=== PATIENT | male | born 1980 ===

== ENCOUNTER 2019-08-10 03:53 | Emergency (ER) | payer SELFPAY ==
[~2019-08-10] VITALS: Ht 175.3 cm; Wt 65.9 kg
[2019-08-10 03:58] VITALS: TEMP 98.9
[2019-08-10 04:29] VITALS: BP 131/88; PULSE 104
[2019-08-10 05:36] LABS: HEMATOCRIT 44.9 % (42.0-52.0); HEMOGLOBIN 15.4 g/dl (13.5-18.0); MEAN CELL VOLUME 82 fl (80.0-100.0); MEAN CORPUSCULAR HEMOGLOBIN 28 pg (27.0-31.0); MEAN CORPUSCULAR HGB CONC 34 g/dl (33.0-37.0); MEAN PLATELET VOLUME 9.3 fl (7.4-10.4); PLATELET COUNT 151 K/mm3 (130-400); RED BLOOD COUNT 5.47 M/mm3 (4.20-5.60); REDCELL DISTRIBUTION WIDTH-CV 12.1 % (11.5-14.5)
[2019-08-10 05:45] LABS: ALANINE AMINOTRANSFERASE 25 U/L (4-49); ALBUMIN 4.1 gm/dL (3.5-5.0); ALKALINE PHOSPHATASE 49 U/L (50-136); ANION GAP 9 mmol/L (7-16); AST,SGOT 27 U/L (15-37); BILIRUBIN,TOTAL 1.5 mg/dL (0.0-1.0); BLOOD UREA NITROGEN 19 mg/dL (9-20); CALCIUM 8.9 mg/dL (8.4-10.2); CARBON DIOXIDE 23 mmol/L (22-30); CHLORIDE 106 mmol/L (98-107); CREATININE, serum 0.84 (0.66-1.25); GLUCOSE 116 mg/dL (74-106); LIPASE 105 U/L (23-300); POTASSIUM 3.3 mmol/L (3.4-5.0); SODIUM 138 mmol/L (137-145); TOTAL PROTEIN 7.5 gm/dL (6.4-8.2)
[2019-08-10 05:57] LABS: TROPONIN-I < 0.012 ng/mL (0.000-0.035)
[2019-08-10 06:08] LABS: BAND 4 % (0-10); LYMPHOCYTE 4 % (20.0-51.0); MYELOCYTE 1 % (0-0); NEUTROPHILS 92 % (42.0-75.2); PLATELET ESTIMATE NORMAL (NORMAL)
[2019-08-10] MEDS ORDERED: ZOFRAN 4MG T4 MG/TAB PO (07:45)
[2019-08-10] MEDS ORDERED: CIPRO 500MG TA500 MG PO (07:45)
[2019-08-10] MEDS ORDERED: PHENERGAN 25 TA25 MG PO (07:45)
[2019-08-10] MEDS ORDERED: FLAGYL500 MG PO (07:45)
--- NOTE | 2019-08-10 08:02 | NUR ---
dc instructions reviewed. PO abx received swallows s diff. Reports pain now 2.
== END 2019-08-10 08:27 | disposition home or self-care (01) ==
LOC: COL.ER 03:53
PROVIDERS: Emergency Medicine
DX: K52.9 Noninfective gastroenteritis and colitis, unspecified (principal); R05 Cough
CPT/HCPCS: J0780; J1885; J2405; J7030; Q9967

== ENCOUNTER 2019-09-23 10:25 | Day surgery (SDC) | payer SELFPAY ==
[~2019-09-23] VITALS: Ht 175.3 cm; Wt 64.5 kg
[2019-09-23] VITALS (7 sets, daily range): BP systolic 112–121; BP diastolic 66–80; PULSE 56–98; TEMP 97.9–98.4
[~2019-09-23 10:25] MED LIST: CIPRO 500MG TA500 MG PO; FLAGYL500 MG PO; PHENERGAN 25 TA25 MG PO; ZOFRAN 4MG T4 MG/TAB PO
[2019-09-23] MEDS ORDERED: TYLENOL W/COD1 UDTAB PO (11:18)
--- NOTE | 2019-09-23 15:05 | NUR ---
Pt to [facility] via cart from PACU. Pt awake and alert. Pt rates pain 3/10 to abdomen. Pt denies nausea. Lap sites are clean and dry with montoya set intact x3. Pt drinking water without diffiuclties. Will continue to monitor. Pt wanting to rest. Will continue to monitor. Call light within reach.
--- NOTE | 2019-09-23 15:20 | NUR ---
Pt resting. Denies needs. Call light within reach.
[2019-09-23] MEDS ORDERED: ULTRAM 50MG TAB50 MG PO (15:26)
--- NOTE | 2019-09-23 15:35 | NUR ---
Pt sleeping. Respirations even and unlabored. Will continue to monitor.
--- NOTE | 2019-09-23 15:50 | NUR ---
Pt continues to sleep. Respirations even and unlabored. Call light within reach.
--- NOTE | 2019-09-23 16:20 | NUR ---
Pt awoken. Juice, applesauce and pudding given per pt request. Will continue to monitor. Call light within reach.
--- NOTE | 2019-09-23 16:38 | NUR ---
Motrin 600mg PO and [place] 5/325mg 1 tab po given per PRN orders. Pt rates pain 4/10 at this time. Will be getting up soon to restroom and for discharge. Pt consumed 100% of food and fluids without c/o nausea. Will continue to monitor. Call light within reach.
--- NOTE | 2019-09-23 17:00 | NUR ---
Pt up to restroom with stand by assist. Pt voids large amount without difficulties. Pt cold and shivering upon returning back to room. Pt lying down with warm blankets. Will provide discharge instructions soon. is on way to [facility] pt. Call light within reach.
--- NOTE | 2019-09-23 17:30 | NUR ---
Patient has met discharge criteria. Discharge instructions are discussed. He denies any questions and verbalizes understanding. PIV is removed with catheter intact and hemostasis achieved. He is escorted to the exit via wheelchair by staff and discharged to home with ride in private vehicle at 1730.
== END 2019-09-23 17:30 | disposition home or self-care (01) ==
LOC: SDCO 10:25
DX: K40.20 Bilateral inguinal hernia, without obstruction or gangrene, not specified as recurrent (principal); G44.009 Cluster headache syndrome, unspecified, not intractable; Z79.899 Other long term (current) drug therapy; Z88.0 Allergy status to penicillin
CPT/HCPCS: C1781; J0690; J1100; J1885; J2405; J2704; J3010; J7120